=== PATIENT | male | born 1965 | race Caucasian/White ===

== ENCOUNTER 2017-01-02 05:34 | Day surgery (SDC) | payer BC ==
[~2017-01-02] VITALS: Ht 188 cm; Wt 121.2 kg
[2017-01-02 06:23] VITALS: BP 144/94; PULSE 65; TEMP 97.5
[2017-01-02] MEDS ORDERED: COZAAR100 MG PO (06:34)
[2017-01-02] MEDS ORDERED: PREVACID 30MG30 M1 PO (06:35)
[2017-01-02] MEDS ORDERED: CELEBREX 200MG200 MG PO (06:36)
[2017-01-02 09:55] VITALS: BP 112/71; PULSE 73; TEMP 97.8
[2017-01-02 10:10] VITALS: BP 124/67; PULSE 79
[2017-01-02 10:25] VITALS: BP 105/66; PULSE 87
[2017-01-02] MEDS ORDERED: ROXICODONE 55 MG/TAB PO (11:09)
[2017-01-02] MEDS ORDERED: NORCO 325 MG-7.1 TAB PO (11:09)
[2017-01-02 11:40] VITALS: BP 124/75; PULSE 104
== END 2017-01-02 12:00 | disposition home or self-care (01) ==
LOC: SDCO 05:34
DX: M19.012 Primary osteoarthritis, left shoulder (principal); M75.02 Adhesive capsulitis of left shoulder; M75.22 Bicipital tendinitis, left shoulder
CPT/HCPCS: C1713; J0171; J0690; J1100; J1885; J2250; J2270; J2405; J2704; J3010; J7120